=== PATIENT | female | born 1965 | race Asian ===

== ENCOUNTER 2023-02-06 09:39 | Outpatient (REF) | payer OTHER, SELFPAY ==
--- NOTE | 2023-02-06 08:30 | PAPFT_PTH ---
PATIENT: Parish Mejias LOC: [facility] U#:[id number] AGE/SX: 57/F ROOM: RE02/06/[address]: Kathleen Marsh MD : [id number] BED: DIS: 02/06/2023 SPEC #: [id number] RECD: 02/06/23 13:11 STATUS: JAELYN RESoni #: [id number] DARCY: 02/06/23 08:[address]: Kathleen Marsh DEPT: [facility] Cytology RECD BY: Giselle Palencia Tissues: 1 - CX/ENDOCX FOR PAP SMEARS Procedures: PAP THIN PREP/[facility] Screening HPV DNA PROBE Comments: [id number]
== END 2023-02-06 09:40 | disposition home or self-care (01) ==
LOC: LBN 09:39
PROVIDERS: Visit Provider Obstetrics & Gynecology
DX: Z12.4 Encounter for screening for malignant neoplasm of cervix (principal); Z11.51 Encounter for screening for human papillomavirus (HPV)
CPT/HCPCS: 88142; 87624

== ENCOUNTER → 2023-02-13 01:00 | Outpatient (CLI) | payer OTHER, SELFPAY ==
--- NOTE | 2023-02-13 14:30 | DI.MAMMO_ITS ---
Exam(s) MAMMO SCREENING EXAM: MAMMO SCREENING CLINICAL HISTORY: screening TECHNIQUE: Bilateral full field digital CC and MLO mammographic images were obtained with 3D tomosyn thesis and utilizing computer aided detection (CAD). COMPARISON: 2018 and 2021 from [facility] [place], [facility] FINDINGS: Masses/Architectural Distortion: None seen. Microcalcifications: No suspicious pleomorphic-type are seen. Skin Thickening/Nipple Retraction: None. IMPRESSION: 1. No significant interval change with no specific features of malignancy noted. 2. Unless there is more urgent need, screening mammography is recommended, as per [employer] guidelines. BI-RADS Category 1 - Negative Breast Density - Category D - Extremely dense Breast density category C or D implies that the patient has dense breast tissue. Dense breast tissue is very common and is not abnormal but dense breast tissue can make it harder to find cancer on a ma mmogram. Also, dense breast tissue may increase their breast cancer risk. This information about the result of the mammogram report was provided to the patient to raise their awareness. Use this report when you speak with the patient about their risks for breast cancer, which includes their family hist ory. At that time, you may recommend for more screening tests (Ultrasound or MRI) as they might be us eful based on their risk. A negative radiographic report should not delay biopsy if a dominant or clinically suspicious mass is present. Up to ten percent of cancers are not identified on mammography. A negative report may reinforce clinical impression. Adenosis and dense breasts may obscure an underlying neoplasm. False positive reports average 6 to 10%. Patient will receive a letter notifying them of these results.
== END ==
PROVIDERS: Visit Provider Obstetrics & Gynecology
DX: Z12.39 Encounter for other screening for malignant neoplasm of breast (principal)
CPT/HCPCS: 77063; 77067

== ENCOUNTER → 2023-09-30 15:49 | Outpatient (CLI) | payer OTHER, SELFPAY ==
--- NOTE | 2023-09-30 | DI.RAD_ITS ---
Exam(s) XR SHOULDER LT COMPLETE 2+V EXAM: XR SHOULDER LT COMPLETE 2+V CLINICAL HISTORY: PAIN IN LT SHOULDER-M25.512. TECHNIQUE: 2D digital imaging was performed. Three views. COMPARISON: No exams were available for comparison FINDINGS: BONES: No acute fracture is present. No bony destructive lesion is seen. JOINTS: No dislocation present. No significant degenerative changes. SOFT TISSUE: Normal. IMPRESSION: Unremarkable radiographs of the left shoulder. DATA REPOSITORY: RADIATION DOSE DELIVERED:
== END ==
PROVIDERS: PCP Nurse Practitioner Family; Visit Provider Nurse Practitioner Family
DX: M25.512 Pain in left shoulder (principal)
CPT/HCPCS: 73030

== ENCOUNTER 2024-02-25 17:28 | Outpatient (REF) | payer OTHER, SELFPAY ==
[2024-02-25 18:37] LABS: Calculated LDL 88 mg/dL (<100); Cholesterol 156 mg/dL (<200); HDL Cholesterol 55 mg/dL (40-60); Triglyceride 66 mg/dL (<150); Vitamin D 25 Total 63.2 ng/mL (30-100)
== END 2024-02-25 17:29 | disposition home or self-care (01) ==
LOC: NCHCN 17:28
PROVIDERS: PCP Nurse Practitioner Family; Visit Provider Nurse Practitioner Family
DX: Z13.6 Encounter for screening for cardiovascular disorders (principal); E55.9 Vitamin D deficiency, unspecified
CPT/HCPCS: 80061; 82306

== ENCOUNTER 2024-04-26 13:03 | Outpatient (REF) | payer OTHER, SELFPAY ==
[2024-04-27 11:58] LABS: Lyme Ab w Rflx to Lyme Confirm Negative (Negative)
== END 2024-04-26 13:04 | disposition home or self-care (01) ==
LOC: NCHCN 13:03
PROVIDERS: PCP Nurse Practitioner Family; Visit Provider Student in an Organized Health Care Education/Training Program
DX: R21 Rash and other nonspecific skin eruption (principal)
CPT/HCPCS: 86618

== ENCOUNTER 2024-04-29 09:11 | Outpatient (CLI) | payer OTHER, SELFPAY ==
[2024-04-29 08:57] LABS: HCT 41.1 % (36.0-46.0); HGB 13.9 g/dL (11.2-15.7); MCHC 33.8 % (32.0-36.0); MCV 95 fL (80-95); MPV 10.1 fL (8.0-11.0); Platelet Count 207 10^3/uL (130-400); RBC 4.34 10^6/uL (3.93-5.22); RDW 11.9 % (11.7-14.6); RDW-SD 41.7 fL; WBC 3.96 10^3/uL (4.4-10.8)
[2024-04-29 09:12] LABS: ALT 15 U/L (14-59); AST 16 U/L (15-37); Albumin 3.9 g/dL (3.4-5.0); Alkaline Phosphatase 56 U/L (46-116); Anion Gap 6.2 mmol/L (3-11); BUN 15 mg/dL (7-18); Bilirubin, Total 0.75 mg/dL (0.2-1.0); CO2 27.8 mmol/L (21.0-32.0); CREATININE 0.8 mg/dL (0.55-1.02); Calcium 9.1 mg/dL (8.5-10.1); Chloride 108 mmol/L (98-107); Estimated GFR 86.42 (mL/min/1.73m2); Glucose 82 mg/dL (74-106); Potassium 3.9 mmol/L (3.5-5.1); Sodium 142 mmol/L (136-145); Total Protein 7.2 g/dL (6.4-8.2)
[2024-04-29 09:14] LABS: C-Reactive Protein < 0.50 mg/dL (<or=0.5)
[2024-04-29 09:24] LABS: ESR 1 mm/hr (0-30)
[2024-04-29 09:51] LABS: COMMENT (LAB VIEW ONLY) 117.12 mg/dL; Microalb ug/mg Crea 2.9 ug/mg Cr
[2024-05-02 10:55] LABS: C3 Complement 82 mg/dL (81-157); C4 Complement 19 mg/dL (13-39); IgA 288 mg/dL (85-499); IgG 991 mg/dL (610-1616); IgM 62 mg/dL (35-242)
[2024-05-02 14:18] LABS: Albumin 61.6 % (55.8-66.1); Albumin g/dL 4.3 g/dL (3.6-5.2); Total Protein 6.9 g/dL (6.3-8.2)
[2024-05-02 14:19] LABS: dsDNA Ab, IgG <22.0 IU/mL (<27.0)
[2024-05-02 14:36] LABS: Phospholipid Ab, IgG <9.4 GPL; Phospholipid Ab, IgM <9.4 MPL
[2024-05-03 14:44] LABS: LA Cascade Summary (See Note)
== END 2024-04-29 09:12 | disposition home or self-care (01) ==
LOC: LBO 09:11
PROVIDERS: PCP Nurse Practitioner Family; Visit Provider Student in an Organized Health Care Education/Training Program
DX: R21 Rash and other nonspecific skin eruption (principal)
CPT/HCPCS: 36415; 80053; 82784; 85027; 85613; 85652; 85732; 86147; 87116; 82043; 82570; 84165; 86140; 86160; 86225